=== PATIENT | female | born 1955 | race Caucasian/White ===

== ENCOUNTER → 2020-01-19 16:19 | Outpatient (CLI) | payer OTHER, SELFPAY ==
[2020-01-19 17:26] LABS: Absolute Lymphocyte Count 3.05 X10^3/uL (0.83-4.51); Absolute Neutrophil Count 2.6 X10^3/uL (2.0-7.7); Basophil# 0.05 X10^3/uL; Basophil% 0.7 % (0-1); Eosinophil# 0.56 X10^3/uL; Eosinophils% 8.3 % (0-5); Hematocrit 41.4 % (37-47); Hemoglobin 13.2 g/dL (12.0-15.0); Lymphocyte # 3.05 X10^3/ul (4.0); Lymphocyte % 45.5 % (19-41); Mean Corp Hgb Conc 31.9 g/dL (32-36); Mean Corpuscular Volume 94.1 fL (81-99); Mean Platelet Vol. 10.5 fl (6.2-12.0); Monocyte# 0.46 X10^3/uL; Monocyte% 6.9 % (0-10); NRBC Flagged by Analyzer 0 % (0-5); Neutrophil # 2.59 X10^3/uL (2.7-7.7); Neutrophil % 38.6 % (47-70); Platelet Count 249 K/mm3 (150-450); RBC Distribution Width SD 45.5 fl (35.1-43.9); White Blood Count 6.7 K/mm3 (4.4-11.0)
[2020-01-19 17:58] LABS: ALB/GLOB Ratio 1.1 RATIO (0.9-2.4); AST(SGOT) 32 U/L (15-37); Alanine Aminotransfer ALT/SGPT 36 U/L (13-56); Alkaline Phosphatase 93 U/L (45-117); Anion Gap 6 (5-15); BUN 14 mg/dL (7-18); BUN/Creat Ratio 16.3 RATIO (10-20); Calcium,Total 9.4 mg/dL (8.5-10.1); Chloride 103 mmol/L (98-107); Creatinine, Serum 0.86 mg/dL (0.55-1.02); EST Glomerular Filtration Rate 71 mL/min (>60); Est Glom Filt Rate - Afr Amer 85 mL/min (>60); Globulin 3.6 g/dL (2.2-4.2); Glucose 86 mg/dL (74-106); Potassium 3.7 mmol/L (3.5-5.1); Protein, Total 7.6 g/dL (6.4-8.2); Sodium Level 137 mmol/L (136-145)
[2020-01-20 09:06] LABS: Hepatitis C Antibody Non-Reactive (Nonreactive); Vitamin D,25 Hydroxy 74.6 ng/mL
== END ==
PROVIDERS: Visit Provider Family Medicine Geriatric Medicine
DX: E55.9 Vitamin D deficiency, unspecified (principal); R53.83 Other fatigue; Z13.89 Encounter for screening for other disorder
CPT/HCPCS: 36415; 80053; 82306; 84443; 85025; 86803

== ENCOUNTER → 2020-06-23 07:45 | Outpatient (CLI) | payer BC, SELFPAY ==
--- NOTE | 2020-06-23 07:51 | BI_ITS ---
MAMMOGRAPHY - BILATERAL SCREENING REASON FOR EXAM: Female, 64 years old. Routine annual screening examination. PERTINENT HISTORY: Aunt with breast cancer. TECHNIQUE: Digital bilateral breast william (3D mammographic acquisition) in the CC and MLO projections. 2-D mediolateral oblique (MLO) and craniocaudad (CC) views of both breasts were obtained. CAD: Full Field Digital Mammography with Computer Added Detection was performed. COMPARISON: Comparison is made with prior examination dated 04/26/2019. FINDINGS: Breast Composition: There are scattered areas of fibroglandular density. There are no dominant masses or suspicious calcifications. Stable small benign-appearing bilateral axillary lymph nodes. No other significant abnormalities are identified. There has been no significant change since the prior study. BI/SCRN MAMM (CAD)W/WILLIAM BILAT IMPRESSION: Stable bilateral screening mammogram. Yearly follow-up mammogram recommended. (A) ASSESSMENT CATEGORY: BIRADS Category 2: Benign. A letter regarding these results will be sent to the patient by the facility within 30 days. Approximately 10% of breast cancers are not detected by mammography. A normal mammogram should not delay biopsy of a clinically suspicious abnormality. [id number] Electronically Signed: Jp Farfan MD at 8:57 EDT , Service support ,
== END ==
PROVIDERS: PCP Family Medicine Geriatric Medicine; Referring Provider Family Medicine Geriatric Medicine; Visit Provider Family Medicine Geriatric Medicine
DX: Z12.31 Encounter for screening mammogram for malignant neoplasm of breast (principal)
CPT/HCPCS: 77063; 77067

== ENCOUNTER → 2020-12-27 09:52 | Outpatient (CLI) | payer MEDICARE, OTHER, SELFPAY ==
[2020-12-27 10:11] LABS: Absolute Lymphocyte Count 2.17 X10^3/uL (0.83-4.51); Absolute Neutrophil Count 1.6 X10^3/uL (2.0-7.7); Basophil# 0.06 X10^3/uL; Basophil% 1.3 % (0-1); Eosinophil# 0.37 X10^3/uL; Eosinophils% 8.1 % (0-5); Hematocrit 39.2 % (37-47); Hemoglobin 13.4 g/dL (12.0-15.0); Lymphocyte # 2.17 X10^3/ul (0.83-4.51); Lymphocyte % 47.7 % (19-41); Mean Corp Hgb Conc 34.2 g/dL (32-36); Mean Corpuscular Hgb 31.1 pg (27.0-32.0); Mean Platelet Vol. 9.7 fl (6.2-12.0); Monocyte# 0.37 X10^3/uL; Monocyte% 8.1 % (0-10); NRBC Flagged by Analyzer 0 % (0-5); Neutrophil # 1.57 X10^3/uL (2.7-7.7); Neutrophil % 34.6 % (47-70); Platelet Count 223 K/mm3 (150-450); RBC Distribution Width CV 12.4 % (11.6-14.6); RBC Distribution Width SD 41.8 fl (35.1-43.9); Red Blood Count 4.31 M/mm3 (4.2-5.4); White Blood Count 4.6 K/mm3 (4.4-11.0)
[2020-12-27 11:04] LABS: NATERA MAILED SPECIMEN
== END ==
PROVIDERS: PCP Family Medicine Geriatric Medicine; Referring Provider Obstetrics & Gynecology; Visit Provider Obstetrics & Gynecology
DX: Z01.411 Encounter for gynecological examination (general) (routine) with abnormal findings (principal)
CPT/HCPCS: 36415; 85025

== ENCOUNTER → 2021-01-19 09:45 | Outpatient (CLI) | payer MEDICARE, OTHER, SELFPAY ==
[2021-01-19 11:07] LABS: Absolute Lymphocyte Count 1.84 X10^3/uL (0.83-4.51); Absolute Neutrophil Count 1.4 X10^3/uL (2.0-7.7); Basophil# 0.07 X10^3/uL; Basophil% 1.8 % (0-1); Eosinophil# 0.39 X10^3/uL; Eosinophils% 9.9 % (0-5); Hematocrit 40.3 % (37-47); Hemoglobin 13.7 g/dL (12.0-15.0); Lymphocyte # 1.84 X10^3/ul (0.83-4.51); Lymphocyte % 46.6 % (19-41); Mean Corpuscular Hgb 31.1 pg (27.0-32.0); Mean Corpuscular Volume 91.6 fL (81-99); Mean Platelet Vol. 9.8 fl (6.2-12.0); Monocyte% 7.6 % (0-10); NRBC Flagged by Analyzer 0 % (0-5); Neutrophil # 1.35 X10^3/uL (2.7-7.7); Neutrophil % 34.1 % (47-70); Platelet Count 235 K/mm3 (150-450); RBC Distribution Width CV 12.7 % (11.6-14.6); RBC Distribution Width SD 42.8 fl (35.1-43.9)
[2021-01-19 11:41] LABS: Vitamin D,25 Hydroxy 57.5 ng/mL
[2021-01-19 11:55] LABS: AST(SGOT) 37 U/L (15-37); Alanine Aminotransfer ALT/SGPT 53 U/L (13-56); Albumin, Serum 3.8 g/dL (3.2-5.0); Alkaline Phosphatase 75 U/L (45-117); Anion Gap 8 (5-15); BUN 15 mg/dL (7-18); BUN/Creat Ratio 18.5 RATIO (10-20); Calcium,Total 9.4 mg/dL (8.5-10.1); Chloride 103 mmol/L (98-107); Creatinine, Serum 0.81 mg/dL (0.55-1.02); EST Glomerular Filtration Rate 75 mL/min (>60); Est Glom Filt Rate - Afr Amer 91 mL/min (>60); Glucose 103 mg/dL (74-106); Potassium 4.1 mmol/L (3.5-5.1); Protein, Total 7.8 g/dL (6.4-8.2); Sodium Level 139 mmol/L (136-145); Thyroid Stim Hormone (TSH) 2.94 uIU/mL (0.358-3.74)
== END ==
PROVIDERS: PCP Family Medicine Geriatric Medicine; Visit Provider Family Medicine Geriatric Medicine
DX: E55.9 Vitamin D deficiency, unspecified (principal); R53.83 Other fatigue
CPT/HCPCS: 36415; 80053; 82306; 84443; 85025

== ENCOUNTER → 2021-06-26 | Outpatient (CLI) | payer MEDICARE, OTHER, SELFPAY ==
--- NOTE | 2021-06-26 09:04 | BI_ITS ---
MAMMOGRAPHY - BILATERAL SCREENING REASON FOR EXAM: Female, 65 years old. Routine annual screening examination. PERTINENT HISTORY: Aunts with breast cancer. TECHNIQUE: Digital bilateral breast william (3D mammographic acquisition) in the CC and MLO projections. 2-D mediolateral oblique (MLO) and craniocaudad (CC) views of both breasts were obtained. CAD: Full Field Digital Mammography with Computer Added Detection was performed. COMPARISON: Comparison is made with prior study dated 06/23/2020. FINDINGS: Breast Composition: There are scattered areas of fibroglandular density. There are no dominant masses or suspicious calcifications. No other significant abnormalities are identified. There has been no significant change since the prior study. BI/SCRN MAMM (CAD)W/WILLIAM BILAT IMPRESSION: Stable bilateral screening mammogram. Yearly follow-up mammogram recommended. (A) ASSESSMENT CATEGORY: BIRADS Category 1: Negative. A letter regarding these results will be sent to the patient by the facility within 30 days. Approximately 10% of breast cancers are not detected by mammography. A normal mammogram should not delay biopsy of a clinically suspicious abnormality. [id number] Electronically Signed: Jp Farfan MD at 10:25 EDT ,
== END | disposition home or self-care (01) ==
LOC: OPBI 09:02
PROVIDERS: PCP Family Medicine Geriatric Medicine; Referring Provider Obstetrics & Gynecology; Visit Provider Obstetrics & Gynecology
DX: Z12.31 Encounter for screening mammogram for malignant neoplasm of breast (principal)
CPT/HCPCS: 77063; 77067

== ENCOUNTER → 2022-01-14 | Outpatient (CLI) | payer MEDICARE, OTHER, SELFPAY ==
[2022-01-14 16:52] LABS: Absolute Lymphocyte Count 2.19 X10^3/uL (0.83-4.51); Absolute Neutrophil Count 3.2 X10^3/uL (2.0-7.7); Basophil# 0.04 X10^3/uL; Basophil% 0.7 % (0-1); Eosinophil# 0.17 X10^3/uL; Eosinophils% 2.8 % (0-5); Hematocrit 39.9 % (37-47); Lymphocyte # 2.19 X10^3/ul (0.83-4.51); Lymphocyte % 36.1 % (19-41); Mean Corp Hgb Conc 32.6 g/dL (32-36); Mean Corpuscular Hgb 31.8 pg (27.0-32.0); Mean Corpuscular Volume 97.6 fL (81-99); Monocyte% 8.3 % (0-10); NRBC Flagged by Analyzer 0 % (0-5); Neutrophil # 3.15 X10^3/uL (2.7-7.7); Neutrophil % 51.9 % (47-70); Platelet Count 268 K/mm3 (150-450); RBC Distribution Width CV 14.8 % (11.6-14.6); RBC Distribution Width SD 53.1 fl (35.1-43.9); Red Blood Count 4.09 M/mm3 (4.2-5.4); White Blood Count 6.1 K/mm3 (4.4-11.0)
[2022-01-14 17:12] LABS: International Normalized Ratio 1.1; Prothrombin Time (Protime)PT. 13.5 SECONDS (11.7-14.9)
[2022-01-14 17:18] LABS: ALB/GLOB Ratio 0.9 RATIO (0.9-2.4); AST(SGOT) 38 U/L (15-37); Alanine Aminotransfer ALT/SGPT 45 U/L (13-56); Albumin, Serum 3.6 g/dL (3.2-5.0); Alkaline Phosphatase 71 U/L (45-117); Anion Gap 7 (5-15); BUN 11 mg/dL (7-18); BUN/Creat Ratio 11.7 RATIO (10-20); Calcium,Total 9.5 mg/dL (8.5-10.1); Chloride 105 mmol/L (98-107); Creatinine, Serum 0.94 mg/dL (0.55-1.02); EST Glomerular Filtration Rate 63 mL/min (>60); Est Glom Filt Rate - Afr Amer 77 mL/min (>60); Glucose 113 mg/dL (74-106); Potassium 4.2 mmol/L (3.5-5.1); Protein, Total 7.6 g/dL (6.4-8.2); Sodium Level 139 mmol/L (136-145)
== END | disposition home or self-care (01) ==
LOC: POLAB3 15:14
PROVIDERS: PCP Family Medicine Geriatric Medicine; Visit Provider Family Medicine Geriatric Medicine
DX: D69.2 Other nonthrombocytopenic purpura (principal); N39.0 Urinary tract infection, site not specified
CPT/HCPCS: 36415; 80053; 85025; 85610; 87077; 87086; 87088; 87186

== ENCOUNTER → 2022-01-25 | Outpatient (CLI) | payer MEDICARE, OTHER, SELFPAY ==
[2022-01-25 13:13] LABS: Absolute Lymphocyte Count 2.11 X10^3/uL (0.83-4.51); Absolute Neutrophil Count 2.7 X10^3/uL (2.0-7.7); Basophil# 0.04 X10^3/uL; Basophil% 0.7 % (0-1); Eosinophils% 3.6 % (0-5); Hematocrit 40.7 % (37-47); Hemoglobin 13.3 g/dL (12.0-15.0); Lymphocyte # 2.11 X10^3/ul (0.83-4.51); Lymphocyte % 38.4 % (19-41); Mean Corp Hgb Conc 32.7 g/dL (32-36); Mean Corpuscular Hgb 31.9 pg (27.0-32.0); Mean Corpuscular Volume 97.6 fL (81-99); Mean Platelet Vol. 10.6 fl (6.2-12.0); Monocyte# 0.47 X10^3/uL; Monocyte% 8.6 % (0-10); NRBC Flagged by Analyzer 0 % (0-5); Neutrophil # 2.66 X10^3/uL (2.7-7.7); Neutrophil % 48.5 % (47-70); Platelet Count 239 K/mm3 (150-450); RBC Distribution Width CV 14.7 % (11.6-14.6); RBC Distribution Width SD 53.2 fl (35.1-43.9); Red Blood Count 4.17 M/mm3 (4.2-5.4); White Blood Count 5.5 K/mm3 (4.4-11.0)
[2022-01-25 13:28] LABS: Vitamin D,25 Hydroxy 68.6 ng/mL
[2022-01-25 14:04] LABS: ALB/GLOB Ratio 0.9 RATIO (0.9-2.4); AST(SGOT) 29 U/L (15-37); Alanine Aminotransfer ALT/SGPT 39 U/L (13-56); Albumin, Serum 3.6 g/dL (3.2-5.0); Alkaline Phosphatase 69 U/L (45-117); Anion Gap 6 (5-15); BUN 14 mg/dL (7-18); BUN/Creat Ratio 14.9 RATIO (10-20); Calcium,Total 9.8 mg/dL (8.5-10.1); Chloride 106 mmol/L (98-107); Creatinine, Serum 0.94 mg/dL (0.55-1.02); EST Glomerular Filtration Rate 63 mL/min (>60); Est Glom Filt Rate - Afr Amer 76 mL/min (>60); Globulin 3.9 g/dL (2.2-4.2); Glucose 77 mg/dL (74-106); Potassium 4.7 mmol/L (3.5-5.1); Protein, Total 7.5 g/dL (6.4-8.2); Sodium Level 141 mmol/L (136-145); Thyroid Stim Hormone (TSH) 2.51 uIU/mL (0.358-3.74)
== END | disposition home or self-care (01) ==
LOC: POLAB3 09:02
PROVIDERS: PCP Family Medicine Geriatric Medicine; Visit Provider Family Medicine Geriatric Medicine
DX: N39.0 Urinary tract infection, site not specified (principal); E55.9 Vitamin D deficiency, unspecified; R53.83 Other fatigue
CPT/HCPCS: 36415; 80053; 82306; 84443; 85025; 87077; 87086; 87088; 87186

== ENCOUNTER → 2022-01-29 | Outpatient (CLI) | payer MEDICARE, BC, OTHER, SELFPAY ==
--- NOTE | 2022-01-29 | TISS_PTH ---
PATIENT: AIDA JENKINS LOC: [facility] U#:[id number] AGE/SX: 66/F ROOM: RE01/29/[address]: Dr. Zain Medina MD : 1955 BED: DIS: 01/29/2022 SPEC #: [id number] RECD: 01/29/22 16:00 STATUS: JANELL BRET #: [id number] MINH: 01/29/22 00:[address]: Zain Medina Chi DEPT: SURGICAL PATHOLOGY RECD BY: Jessica Bowie Tissues: Skin of leg, NOS Procedures: Surgery Specimen Level IV HEADER OPERATION: Left leg shave biopsy PRE-OP DIAGNOSIS: Left leg lesion TISSUE SUBMITTED: Left leg MICROSCOPIC DIAGNOSIS Skin lesion of left leg, shave biopsy: Squamous cell carcinoma. See comment. AM:ronn 01/31/2022 COMMENT The lesion is transected at the base. Complete excision is recommended for definitive classification. Case has been reviewed in consultation with Dr. Miranda who concurs with the above diagnosis. IDC:[id number] MICROSCOPIC DESCRIPTION Slides are reviewed. GROSS DESCRIPTION Received is one container labeled with the patient's name and not further designated. The specimen consists of a light moss shaved biopsy of skin measuring 0.7 x 0.6 x 0.2 cm. The specimen is inked, sectioned and totally submitted in one cassette. / AM:ronn 01/30/2022 TC:0 CPT: 95585
== END | disposition home or self-care (01) ==
LOC: POLAB3 11:41
PROVIDERS: PCP Family Medicine Geriatric Medicine; Visit Provider Family Medicine Geriatric Medicine
DX: C44.719 Basal cell carcinoma of skin of left lower limb, including hip (principal)
CPT/HCPCS: 87210; 88305

== ENCOUNTER → 2022-02-07 | Outpatient (CLI) | payer MEDICARE, OTHER, SELFPAY | END | disposition home or self-care (01) | LOC: POLAB3 11:10 → LABSPEC 11:10 | PROVIDERS: PCP Family Medicine Geriatric Medicine; Visit Provider Family Medicine Geriatric Medicine | DX: N39.0 Urinary tract infection, site not specified (principal) | CPT/HCPCS: 87086; 87088; 87186 ==

== ENCOUNTER → 2022-06-28 | Outpatient (CLI) | payer MEDICARE, OTHER, SELFPAY ==
--- NOTE | 2022-06-28 08:36 | BI_ITS ---
MAMMOGRAPHY - BILATERAL SCREENING REASON FOR EXAM: Female, 66 years old. Routine annual screening examination. PERTINENT HISTORY: Aunts with breast cancer. TECHNIQUE: Digital bilateral breast william (3D mammographic acquisition) in the CC and MLO projections. 2-D mediolateral oblique (MLO) and craniocaudad (CC) views of both breasts were obtained. CAD: Full Field Digital Mammography with Computer Added Detection was performed. COMPARISON: Comparison is made with prior study dated June 26, 2021 and June 23, 2020. FINDINGS: Breast Composition: There are scattered areas of fibroglandular density. There are no dominant masses or suspicious calcifications. Stable small benign-appearing bilateral axillary lymph nodes. No other significant abnormalities are identified. There has been no significant change since the prior study. BI/SCRN MAMM (CAD)W/WILLIAM BILAT IMPRESSION: Stable bilateral screening mammogram. Yearly follow-up mammogram recommended. (A) ASSESSMENT CATEGORY: BIRADS Category 2: Benign. A letter regarding these results will be sent to the patient by the facility within 30 days. Approximately 10% of breast cancers are not detected by mammography. A normal mammogram should not delay biopsy of a clinically suspicious abnormality. [id number] Electronically Signed: Jp Farfan MD at 10:22 EDT ,
== END | disposition home or self-care (01) ==
PROVIDERS: PCP Family Medicine Geriatric Medicine; Referring Provider Obstetrics & Gynecology; Visit Provider Obstetrics & Gynecology
DX: Z12.31 Encounter for screening mammogram for malignant neoplasm of breast (principal)
CPT/HCPCS: 77063; 77067

== ENCOUNTER → 2023-02-04 | Outpatient (CLI) | payer MEDICARE, OTHER, SELFPAY ==
[2023-02-04 11:34] LABS: Absolute Lymphocyte Count 1.85 X10^3/uL (0.83-4.51); Absolute Neutrophil Count 2.1 X10^3/uL (2.0-7.7); Basophil# 0.08 X10^3/uL; Basophil% 1.6 % (0-1); Eosinophil# 0.37 X10^3/uL; Eosinophils% 7.6 % (0-5); Hematocrit 39.2 % (37-47); Hemoglobin 12.4 g/dL (12.0-15.0); Lymphocyte # 1.85 X10^3/ul (0.83-4.51); Lymphocyte % 38.1 % (19-41); Mean Corp Hgb Conc 31.6 g/dL (32-36); Mean Corpuscular Hgb 30.2 pg (27.0-32.0); Mean Corpuscular Volume 95.4 fL (81-99); Mean Platelet Vol. 9.9 fl (6.2-12.0); Monocyte# 0.41 X10^3/uL; Monocyte% 8.4 % (0-10); NRBC Flagged by Analyzer 0 % (0-5); Neutrophil # 2.14 X10^3/uL (2.7-7.7); Neutrophil % 44.1 % (47-70); Platelet Count 228 K/mm3 (150-450); RBC Distribution Width CV 13.2 % (11.6-14.6); RBC Distribution Width SD 46.3 fl (35.1-43.9); Red Blood Count 4.11 M/mm3 (4.2-5.4); White Blood Count 4.9 K/mm3 (4.4-11.0)
[2023-02-04 11:45] LABS: Vitamin D,25 Hydroxy 70.4 ng/mL
[2023-02-04 11:52] LABS: ALB/GLOB Ratio 0.9 RATIO (0.9-2.4); AST(SGOT) 25 U/L (15-37); Alanine Aminotransfer ALT/SGPT 28 U/L (13-56); Albumin, Serum 3.5 g/dL (3.2-5.0); Alkaline Phosphatase 72 U/L (45-117); Anion Gap 6 (5-15); BUN 10 mg/dL (7-18); BUN/Creat Ratio 10.9 RATIO (10-20); Calcium,Total 9.5 mg/dL (8.5-10.1); Chloride 109 mmol/L (98-107); Creatinine, Serum 0.91 mg/dL (0.55-1.02); EST Glomerular Filtration Rate 65 mL/min (>60); Est Glom Filt Rate - Afr Amer 79 mL/min (>60); Globulin 3.7 g/dL (2.2-4.2); Glucose 106 mg/dL (74-106); Potassium 4.2 mmol/L (3.5-5.1); Protein, Total 7.2 g/dL (6.4-8.2); Sodium Level 144 mmol/L (136-145); Thyroid Stim Hormone (TSH) 2.15 uIU/mL (0.358-3.74)
== END | disposition home or self-care (01) ==
LOC: POLAB3 10:40
PROVIDERS: Visit Provider Family Medicine Geriatric Medicine
DX: R53.83 Other fatigue (principal); E55.9 Vitamin D deficiency, unspecified
CPT/HCPCS: 36415; 80053; 82306; 84443; 85025

== ENCOUNTER → 2023-03-05 | Outpatient (CLI) | payer MEDICARE, OTHER, SELFPAY ==
--- NOTE | 2023-03-05 12:16 | NEURO ---
NCS and/or EMG Patient Report Ordering Doctor: Zain Medina Chi DATE OF SERVICE: 03/05/23 Jenny presents for electrodiagnostic testing of the upper limbs due to numbness and tingling in both hands. Electrodiagnostic Findings: Right median motor nerve demonstrates normal distal latency and amplitude with borderline reduced conduction velocity. Left median motor nerve demonstrates normal distal latency and amplitude with reduced conduction velocity. Ulnar motor response within normal limits bilaterally. Prolonged median sensory latency at the wrist bilaterally. Prolonged left median palmar latency. Normal ulnar and radial sensory responses. Needle EMG testing was performed the upper limbs. All muscles tested showed no evidence of denervation with normal motor unit action potentials. Electrodiagnostic impression: This is an abnormal study in the upper limbs 1. Electrodiagnostic findings suggestive of bilateral median mononeuropathy. This is consistent with a mild bilateral carpal tunnel syndrome. Multi Select Codes Neurology Neurology Interp Codes: 36067-99 Musc test done w/n test comp (interp) (2) and 69744-52 Nrv cndj test 13/> studies (interp)
== END | disposition home or self-care (01) ==
LOC: PSN 10:03
PROVIDERS: PCP Family Medicine Geriatric Medicine; Referring Provider Family Medicine Geriatric Medicine; Visit Provider Family Medicine Geriatric Medicine
DX: G56.03 Carpal tunnel syndrome, bilateral upper limbs (principal)
CPT/HCPCS: 95886; 95912

== ENCOUNTER → 2023-04-03 | Outpatient (CLI) | payer MEDICARE, OTHER, SELFPAY | END | disposition home or self-care (01) | PROVIDERS: PCP Family Medicine Geriatric Medicine; Referring Provider Family Medicine Geriatric Medicine; Visit Provider Family Medicine Geriatric Medicine | DX: R68.83 Chills (without fever) (principal) | CPT/HCPCS: 87631 ==

== ENCOUNTER → 2023-06-30 | Outpatient (CLI) | payer MEDICARE, OTHER, SELFPAY ==
--- NOTE | 2023-06-30 09:44 | BI_ITS ---
MAMMOGRAPHY - BILATERAL SCREENING REASON FOR EXAM: Female, 67 years old. Routine annual screening examination. PERTINENT HISTORY: Aunts with breast cancer. TECHNIQUE: Digital bilateral breast william (3D mammographic acquisition) in the CC and MLO projections. 2-D mediolateral oblique (MLO) and craniocaudad (CC) views of both breasts were obtained. CAD: Full Field Digital Mammography with Computer Added Detection was performed. COMPARISON: Comparison is made with prior study June 28, 2022 and June 26, 2021. FINDINGS: Breast Composition: There are scattered areas of fibroglandular density. There are no dominant masses or suspicious calcifications. Stable small benign appearing bilateral axillary lymph nodes. No other significant abnormalities are identified. There has been no significant change since the prior study. BI/SCRN MAMM (CAD)W/WILLIAM BILAT IMPRESSION: Stable bilateral screening mammogram. Yearly follow-up mammogram recommended. (A) ASSESSMENT CATEGORY: BIRADS Category 2: Benign. A letter regarding these results will be sent to the patient by the facility within 30 days. Approximately 10% of breast cancers are not detected by mammography. A normal mammogram should not delay biopsy of a clinically suspicious abnormality. [id number] Electronically Signed: Jp Farfan MD at 9:31 EDT ,
== END | disposition home or self-care (01) ==
LOC: OPBI 09:44
PROVIDERS: PCP Family Medicine Geriatric Medicine; Referring Provider Obstetrics & Gynecology; Visit Provider Obstetrics & Gynecology
DX: Z12.31 Encounter for screening mammogram for malignant neoplasm of breast (principal); Z80.3 Family history of malignant neoplasm of breast
CPT/HCPCS: 77063; 77067

== ENCOUNTER → 2024-02-04 | Outpatient (CLI) | payer MEDICARE, OTHER, SELFPAY ==
[2024-02-04 09:14] LABS: Absolute Lymphocyte Count 2.64 X10^3/uL (0.83-4.51); Absolute Neutrophil Count 1.9 X10^3/uL (2.0-7.7); Basophil# 0.07 X10^3/uL; Basophil% 1.3 % (0-1); Eosinophil# 0.28 X10^3/uL; Eosinophils% 5.3 % (0-5); Hematocrit 41.1 % (37-47); Hemoglobin 13.2 g/dL (12.0-15.0); Lymphocyte # 2.64 X10^3/ul (0.83-4.51); Lymphocyte % 49.5 % (19-41); Mean Corp Hgb Conc 32.1 g/dL (32-36); Mean Corpuscular Hgb 30.4 pg (27.0-32.0); Mean Corpuscular Volume 94.7 fL (81-99); Mean Platelet Vol. 9.3 fl (6.2-12.0); Monocyte# 0.45 X10^3/uL; Monocyte% 8.4 % (0-10); NRBC Flagged by Analyzer 0 % (0-5); Neutrophil # 1.88 X10^3/uL (2.7-7.7); Neutrophil % 35.3 % (47-70); Platelet Count 245 K/mm3 (150-450); RBC Distribution Width CV 12.7 % (11.6-14.6); Red Blood Count 4.34 M/mm3 (4.2-5.4); White Blood Count 5.3 K/mm3 (4.4-11.0)
[2024-02-04 09:57] LABS: AST(SGOT) 24 U/L (15-37); Alanine Aminotransfer ALT/SGPT 29 U/L (13-56); Albumin, Serum 3.7 g/dL (3.2-5.0); Alkaline Phosphatase 68 U/L (45-117); Anion Gap 1 (5-15); BUN 8 mg/dL (7-18); BUN/Creat Ratio 8.4 RATIO (10-20); Calcium,Total 9.4 mg/dL (8.5-10.1); Chloride 107 mmol/L (98-107); Creatinine, Serum 0.95 mg/dL (0.55-1.02); EST Glomerular Filtration Rate 62 mL/min (>60); Est Glom Filt Rate - Afr Amer 75 mL/min (>60); Globulin 3.6 g/dL (2.2-4.2); Glucose 110 mg/dL (74-106); Protein, Total 7.3 g/dL (6.4-8.2); Sodium Level 140 mmol/L (136-145)
== END | disposition home or self-care (01) ==
LOC: POLAB3 09:02
PROVIDERS: PCP Family Medicine Geriatric Medicine; Visit Provider Family Medicine Geriatric Medicine
DX: E55.9 Vitamin D deficiency, unspecified (principal); R53.83 Other fatigue
CPT/HCPCS: 36415; 80053; 82306; 84443; 85025

== ENCOUNTER → 2024-03-11 | Outpatient (CLI) | payer MEDICARE, OTHER, SELFPAY | END | disposition home or self-care (01) | LOC: LAB 09:17 | PROVIDERS: PCP Family Medicine Geriatric Medicine; Referring Provider Family Medicine Geriatric Medicine; Visit Provider Family Medicine Geriatric Medicine | DX: E03.9 Hypothyroidism, unspecified (principal) | CPT/HCPCS: 36415; 84443 ==

== ENCOUNTER → 2024-06-30 | Outpatient (CLI) | payer MEDICARE, OTHER, SELFPAY ==
--- NOTE | 2024-06-30 10:35 | BI_ITS ---
EXAM: SCRN MAMM (CAD)W/WILLIAM BILAT 06/30/2024 CLINICAL HISTORY: F, Age 68 y/o , BREAST CANCER SCREENING TECHNIQUE: Bilateral screening digital breast tomosynthesis with 2D and 3D images. Computer aided detection. COMPARISON: Prior exam(s) dated 06/30/2023, 06/28/2022, 06/26/2021. FINDINGS: TISSUE DENSITY: The breast tissue is composed of scattered area of fibroglandular density. Bilateral Breast Mammographic Findings: No significant masses, calcifications or other abnormalities are identified. BI/SCRN MAMM (CAD)W/WILLIAM BILAT IMPRESSION: Right Breast: BIRADS 1 NEGATIVE. Left Breast: BIRADS 1 NEGATIVE. OVERALL FINAL ASSESSMENT: BIRADS 1 NEGATIVE. RECOMMENDATION: Routine annual follow-up in 1 Year A letter with findings and recommendations will be mailed to the patient. Reading Location: [id number]
== END | disposition home or self-care (01) ==
LOC: OPBI 10:34
PROVIDERS: PCP Family Medicine Geriatric Medicine; Referring Provider Obstetrics & Gynecology; Visit Provider Obstetrics & Gynecology
DX: Z12.31 Encounter for screening mammogram for malignant neoplasm of breast (principal)
CPT/HCPCS: 77063; 77067

== ENCOUNTER → 2024-11-23 | Outpatient (CLI) | payer MEDICARE, OTHER, SELFPAY | END | disposition home or self-care (01) | LOC: RAD 16:50 | PROVIDERS: PCP Family Medicine Geriatric Medicine; Referring Provider Family Medicine Geriatric Medicine; Visit Provider Family Medicine Geriatric Medicine | DX: M89.8X1 Other specified disorders of bone, shoulder (principal); W19.XXXA Unspecified fall, initial encounter; R07.89 Other chest pain | CPT/HCPCS: 71101; 71120; 73010 ==

== ENCOUNTER → 2025-02-04 | Outpatient (CLI) | payer MEDICARE, OTHER, SELFPAY ==
[2025-02-04 10:26] LABS: Hematocrit 38.7 % (37-47); Hemoglobin 12.9 g/dL (12.0-15.0); Immature Granulocytes Count 0.010 X10^3/uL (0.0-0.0); Mean Corp Hgb Conc 33.3 g/dL (32-36); Mean Corpuscular Volume 91.3 fL (81-99); Mean Platelet Vol. 9.2 fl (6.2-12.0); NRBC Flagged by Analyzer 0 % (0-5); Platelet Count 230 K/mm3 (150-450); RBC Distribution Width CV 13.1 % (11.6-14.6); RBC Distribution Width SD 43.3 fl (35.1-43.9); Red Blood Count 4.24 M/mm3 (4.2-5.4); White Blood Count 6.0 K/mm3 (4.4-11.0)
[2025-02-04 11:36] LABS: AST(SGOT) 40 U/L (<=31); Alanine Aminotransfer ALT/SGPT 38 U/L (<=34); Albumin, Serum 4.2 g/dL (3.4-4.8); Alkaline Phosphatase 82 U/L (35-104); Anion Gap 9 (5-15); BUN 10 mg/dL (4-19); BUN/Creat Ratio 9.9 RATIO (10-20); Calcium,Total 9.8 mg/dL (7.6-11.0); Carbon Dioxide 27.0 mmol/L (21.0-32.0); Chloride 104 mmol/L (98-108); Globulin 3.0 g/dL (2.2-4.2); Glucose 99 mg/dL (70-99); Potassium 4.1 mmol/L (3.3-5.1); Vitamin D,25 Hydroxy 98.3 ng/mL (30-100)
== END | disposition home or self-care (01) ==
LOC: LAB 10:09
PROVIDERS: PCP Family Medicine Geriatric Medicine; Referring Provider Family Medicine Geriatric Medicine; Visit Provider Family Medicine Geriatric Medicine
DX: E03.9 Hypothyroidism, unspecified (principal); E55.9 Vitamin D deficiency, unspecified; R53.83 Other fatigue
CPT/HCPCS: 36415; 80053; 82306; 84443; 85025

== ENCOUNTER → 2025-02-07 | Outpatient (CLI) | payer MEDICARE, OTHER, SELFPAY ==
[2025-02-07 19:58] LABS: Xtra Tube Kwok EXTRA TUBE
[2025-02-08 03:07] LABS: HEPATITIS B SURFACE AG Negative (Negative); Hep C Antibodies Non Reactive (Non Reactive)
== END | disposition home or self-care (01) ==
LOC: POLAB3 11:58
PROVIDERS: PCP Family Medicine Geriatric Medicine; Visit Provider Family Medicine Geriatric Medicine
DX: Z13.89 Encounter for screening for other disorder (principal); R74.01 Elevation of levels of liver transaminase levels
CPT/HCPCS: 36415; 80074

== ENCOUNTER → 2025-02-16 | Outpatient (CLI) | payer MEDICARE, OTHER, SELFPAY ==
--- NOTE | 2025-02-16 08:34 | US_ITS ---
PROCEDURE: ABDOMEN LIMITED 02/16/2025 REASON FOR EXAM: ELEVATED LIVER ENZ /RUQ PAIN TECHNIQUE: Procedure Code: USABDL Modality: US Procedure: ABDOMEN LIMITED COMPARISON: None FINDINGS: Liver: Liver measures 14.7 cm. There is diffuse fatty infiltration of the liver. No intrahepatic masses or intrahepatic biliary ductal dilatation is seen. Portal vein and hepatic vein flow is noted. There is hepatopetal flow. Gallbladder: The gallbladder has been surgically removed. Common bile duct: 5 mm Pancreas: Size contour and echogenicity are within normal limits. There are no pancreatic masses seen. There is no pancreatic ductal dilatation. Kidneys: The right kidney measures 11.0 x 4.6 x 4.0 cm. Cortical thickness measures 1 cm. Size, contour, and echogenicity are within normal limits. There are no stones, masses or hydronephrosis.. Ascites: There is no ascites. US/Abdomen Limited IMPRESSION: There is diffuse fatty infiltration of the liver Evidence of previous cholecystectomy. Reading Location: [id number]
== END | disposition home or self-care (01) ==
LOC: US 08:31
PROVIDERS: PCP Family Medicine Geriatric Medicine; Referring Provider Family Medicine Geriatric Medicine; Visit Provider Family Medicine Geriatric Medicine
DX: R74.8 Abnormal levels of other serum enzymes (principal)
CPT/HCPCS: 76705